=== PATIENT | female | born 1990 | race Caucasian/White ===

== ENCOUNTER 2019-01-15 08:33 | Emergency (ER) | payer OTHER ==
[~2019-01-15] VITALS: Ht 160 cm; Wt 63.5 kg
[2019-01-15 08:41] VITALS: BP 127/77; Ht 160 cm; Wt 63.5 kg
[2019-01-15 09:00] LABS: BASOPHIL % 0.4 % (0-2); PLATELET COUNT 265 x10^3mcL (130-400)
[2019-01-15 09:01] LABS: RED CELL DISTRIBUTION WIDTH 15.9 % (11.5-14.5)
[2019-01-15 09:35] LABS: CALCIUM 9.3 mg/dL (8.5-10.1); CARBON DIOXIDE 28.8 mmol/L (21-32); CHLORIDE SERUM 105 mmol/L (98-107); CREATININE SERUM 0.9 mg/dL (0.6-1.0); GFR1 > 60 mL/min; GLUCOSE SERUM 96 mg/dL (74-106); POTASSIUM SERUM 3.6 mmol/L (3.5-5.1); SODIUM SERUM 142 mmol/L (136-145)
[2019-01-15 09:39] LABS: ALKALINE PHOSPHATASE 131 U/L (46-116); ALT/SGPT 28 U/L (14-59); AST/SGOT 15 U/L (15-37); BILIRUBIN TOTAL 0.61 mg/dL (0.20-1.00); LIPASE 146 IU/L (73-393); TOTAL PROTEIN, SERUM 7.5 g/dL (6.4-8.2)
== END 2019-01-15 09:54 | disposition home or self-care (01) ==
LOC: ED 08:33
PROVIDERS: Emergency Medicine
DX: N30.00 Acute cystitis without hematuria (principal); R11.2 Nausea with vomiting, unspecified; Z91.013 Allergy to seafood
CPT/HCPCS: 36415; J1885

== ENCOUNTER 2019-08-19 17:31 | Inpatient (IN) | payer OTHER ==
[~2019-08-19] VITALS: Ht 160 cm; Wt 65.9 kg
[2019-08-19 17:51] VITALS: Ht 160 cm; Wt 65.9 kg
[2019-08-19 18:51] LABS: BASOPHIL % 0.3 % (0-2); PLATELET COUNT 289 x10^3mcL (130-400)
[2019-08-19 18:57] LABS: RED CELL DISTRIBUTION WIDTH 18.8 % (11.5-14.5)
[2019-08-19 19:10] LABS: CALCIUM 8.4 mg/dL (8.5-10.1); CARBON DIOXIDE 27.5 mmol/L (21-32); CHLORIDE SERUM 102 mmol/L (98-107); CREATININE SERUM 0.6 mg/dL (0.6-1.0); GFR1 > 60 mL/min; GLUCOSE SERUM 93 mg/dL (74-106); POTASSIUM SERUM 3.6 mmol/L (3.5-5.1); SODIUM SERUM 138 mmol/L (136-145)
[2019-08-19 19:17] LABS: microscopic required? YES; urine erythrocyte NEGATIVE (NEGATIVE)
[2019-08-20 02:41] VITALS: BP 117/70
[2019-08-20 05:03] VITALS: BP 104/70
[2019-08-20 06:30] LABS: BASOPHIL % 0.5 % (0-2); PLATELET COUNT 253 x10^3mcL (130-400)
[2019-08-20 06:36] LABS: RED CELL DISTRIBUTION WIDTH 18.6 % (11.5-14.5)
[2019-08-20 07:29] LABS: CALCIUM 8.4 mg/dL (8.5-10.1); CARBON DIOXIDE 25.2 mmol/L (21-32); CHLORIDE SERUM 105 mmol/L (98-107); CREATININE SERUM 0.5 mg/dL (0.6-1.0); GFR1 > 60 mL/min; GLUCOSE SERUM 87 mg/dL (74-106); POTASSIUM SERUM 3.8 mmol/L (3.5-5.1); SODIUM SERUM 139 mmol/L (136-145)
[2019-08-20 08:14] VITALS: BP 112/56; BP 140/55
[2019-08-20 12:45] VITALS: BP 118/62
[2019-08-20 16:14] VITALS: BP 110/61
[2019-08-20 21:44] VITALS: BP 103/55
[2019-08-21 06:03] VITALS: BP 102/53
[2019-08-21 08:21] VITALS: BP 109/64
[2019-08-21 08:58] LABS: BASOPHIL % 0.4 % (0-2); PLATELET COUNT 247 x10^3mcL (130-400)
[2019-08-21 09:18] LABS: CALCIUM 8.5 mg/dL (8.5-10.1); CARBON DIOXIDE 24.9 mmol/L (21-32); CHLORIDE SERUM 106 mmol/L (98-107); CREATININE SERUM 0.6 mg/dL (0.6-1.0); GFR1 > 60 mL/min; GLUCOSE SERUM 109 mg/dL (74-106); MAGNESIUM 1.7 mg/dL (1.8-2.4); PHOSPHOROUS 3.3 mg/dL (2.5-4.9); POTASSIUM SERUM 3.2 mmol/L (3.5-5.1); SODIUM SERUM 139 mmol/L (136-145)
[2019-08-21] MEDS ORDERED: KEFLEX500 M1 PO (10:42)
[2019-08-21 10:44] VITALS: BP 109/64
== END 2019-08-21 11:45 | disposition home or self-care (01) | DRG 566 ==
LOC: ED 17:31 → MU 22:41
PROVIDERS: Emergency Medicine; Internal Medicine Pulmonary Disease; Obstetrics & Gynecology; ADMIT Hospitalist
DX: O23.02 Infections of kidney in pregnancy, second trimester (principal); F43.10 Post-traumatic stress disorder, unspecified; O99.342 Other mental disorders complicating pregnancy, second trimester; Z3A.14 14 weeks gestation of pregnancy; Z91.013 Allergy to seafood
CPT/HCPCS: G0378; J0696; J1580; J7030; J7060; Q0092